=== PATIENT | female | born 1965 | race Caucasian/White ===

== ENCOUNTER 2016-06-25 00:40 | Day surgery (SDC) | payer OTHER ==
[2016-06-25] VITALS (12 sets, daily range): BP systolic 104–145; BP diastolic 50–76; PULSE 52–67; RESP 11–18; O2SAT 97–99
[~2016-06-25] VITALS: Ht 154.9 cm; Wt 48.1 kg
--- NOTE | 2016-06-25 06:30 | NUR ---
ADMISSION NOTE FEMALE PT ADMITTED FOR [facility]FE. DISCUSSED PLAN OF CARE WITH PT. SEE ADMIT AND FLOW SHEET
[2016-06-25] MEDS ORDERED: CeFAZolin 2 Gm/50 mL D5W IV Premix IV SCH (07:06)
[2016-06-25 07:07] LABS: BASOPHILS % (AUTO) 1.4 % (0-3); EOSINOPHILS % (AUTO) 2.6 % (0-5); MONOCYTES % (AUTO) 10.3 % (4-12); Mean Corpuscular Hemoglobin 27.1 pg (27.0-35.0); Mean Corpuscular Volume 84.5 fL (81-100); Platelet Count 222 bil/L (150-400)
[2016-06-25 07:35] LABS: INR 0.94 ratio
--- NOTE | 2016-06-25 08:00 | NUR ---
NOTE #[address] INSERTED WITHOUT DIFFICULTY
[2016-06-25] MEDS: 0.9% NaCl + KCl 20 mEq/L 1,000 ML IV SCH ×3 (08:02→20:30)
[2016-06-25] MEDS ORDERED: FLUO20CA25 PO (08:04)
[2016-06-25] MEDS ORDERED: Heparin 1,000 Unit/mL 10 mL Inj ONE (08:06)
[2016-06-25] MEDS ORDERED: 0.9% Sodium Chloride 1,000 ML ONE (08:06)
[2016-06-25] MEDS: Ondansetron 2 mg/mL 2 mL Inj IVPUSH SCH ×2 (08:18→11:34)
[2016-06-25] MEDS ORDERED: fentaNYL-PF 50 mCg/mL 2 mL Inj ONE (08:56)
[2016-06-25] MEDS ORDERED: Nitroglycerin 50,000 mcg/250 mL D5W Premix IV ONE (09:06)
[2016-06-25] MEDS ORDERED: Ketorolac 30 mg/mL 2 mL Inj ONE (09:17)
--- NOTE | 2016-06-25 10:00 | NUR ---
POST PROCEDURE NOTE RETURNED FROM SENIOR UX DEVELOPER. SENIOR NUCLEAR MEDICINE TECHNOLOGIST ATTACHED PER ORDER. SEE FLOW SHEET
[2016-06-25] MEDS ORDERED: HYDROmorphone 1 mg/mL Inj IVPUSH PRN ×2 (10:05)
[2016-06-25] MEDS: HYDROmorphone PCA 0.2 mg/mL 30 mL Inj - Standard IV PRN (10:38)
[2016-06-25] MEDS ORDERED: Ondansetron 2 mg/mL 2 mL Inj IVPUSH ONE (11:35)
--- NOTE | 2016-06-25 13:00 | NUR ---
TRANSFERED TO [facility]. REPORT GIVEN
--- NOTE | 2016-06-25 13:30 | NUR ---
ADMIT TO [facility] Patient arrived to rm 1014 on hospital bed and was able to scoot/pivot over to hospital bed in room. Alert and awake. Bolivar catheter in place. On RA, placed on CPOX. Dilaudid COUNSEL already in place and patient states it has been effective with managing cramping pain in lower abdomen. C/o mild nausea from the transfer. Gave ice water. IV fluids running. Continue to monitor
--- NOTE | 2016-06-25 13:45 | DRSVH ---
PROCEDURE: 1. Uterine fibroid embolization. 2. Conscious sedation 80 minutes. 3. Right groin closure device. INDICATIONS: Symptomatic uterine fibroids. COMPARISON: None. TECHNIQUE: Informed, written consent from the patient was obtained prior to the procedure. The risks (including, but not limited to risk of , need for hysterectomy, dilatation and curettage procedu re, infection, premature menopause, loss of orgasms, nontarget embolization, inadequate symptomatic r elief, arterial injury, hemorrhage, need for possible repeat procedure, pulmonary embolus) and benefi ts of uterine fibroid embolization procedure were discussed with the patient thoroughly. Patient was brought to the angiography suite, and conscious sedation was administered intravenously by skilled n ursing staff, while continuous cardiorespiratory monitoring was performed. Maximal sterile barrier te chnique, hand hygiene, skin preparation, and sterile ultrasound technique was followed. A mask, steri le gown, sterile gloves, a large sterile sheet, hand hygiene, and 2% chlorhexidine or iodine was util ized for skin antisepsis. The bilateral groins were prepped and draped sterilely, and the skin overl rush the right common femoral artery was infused with lidocaine. The right common femoral artery was accessed retrograde with a micropuncture set. A 5 Rwandan sheath was advanced, through which a 5 Frenc h C2 catheter was advanced, and was used to selectively inject the left internal iliac artery. A 3 Fr ench renegade hi flow catheter was advanced, was used to select the left uterine artery, and intra-ar terial nitroglycerin was administered. The renegade high flow catheter was injected for selective lef t uterine arteriography. The renegade high flow catheter was advanced into the distal portion of the left uterine artery, and embolization was performed with 700-900 micron embospheres, followed by 500- 700 micron embosphere is until stasis was achieved, as documented by hand injection digital subtracti on angiography. A Genaro's loop was formed with the C2 catheter, and the right internal iliac artery was selectively injected for right internal iliac arteriography. The renegade high flow catheter was used to select the right uterine artery, which was injected with intra-arterial nitroglycerin. Selec tive right uterine arteriography was performed. The renegade hi flow catheter was advanced into the d istal right uterine artery, and embolization was performed with 700-900 micron embospheres followed b y 500-700 micron embospheres until stasis was achieved, as documented by hand injection digital subtr action angiography. A 5 Rwandan pigtail catheter was advanced into the perirenal abdominal aorta and w as injected for AP pelvic arteriography. The right groin was then closed with a Starclose device. FLUOROSCOPY TIME: 12 minutes FINDINGS: The bilateral uterine arteries are tortuous and hypertrophied, and there is fibroid tumor blush and neovascularity seen on uterine artery injection. Following uterine artery embolization, sta sis is present within the bilateral uterine arteries. Aortography demonstrates no persistent flow in the uterine arteries, nor collateral vessels feeding the uterus. IMPRESSION: 1. Uterine artery embolization as described above, for symptomatic uterine fibroids. 2. The patient will be admitted for overnight observation, with anticipated discharge the following d ay. Dictated by: Farideh Cramer M.D. on 06/25/2016 at 13:42 Approved by: Farideh Cramer M.D. on 06/25/2016 at 13:44
[2016-06-25] MEDS ORDERED: oxyCODONE-Acetamin 5-325 mg Tablet PO PRN (15:35)
[2016-06-25] MEDS ORDERED: Ondansetron 2 mg/mL 2 mL Inj IVPUSH PRN (15:35)
[2016-06-25] MEDS: 0.9% Sodium Chloride 1,000 ML IV SCH ×2 (16:51→19:16)
[2016-06-26] MEDS: 0.9% NaCl + KCl 20 mEq/L 1,000 ML IV SCH ×2 (03:10→08:32)
[2016-06-26] MEDS: 0.9% Sodium Chloride 1,000 ML IV SCH ×2 (03:13→08:32)
[2016-06-26] MEDS: HYDROmorphone PCA 0.2 mg/mL 30 mL Inj - Standard IV PRN (03:29)
[2016-06-26 04:36] VITALS: BP 113/61; PULSE 54; RESP 15; O2SAT 94
--- NOTE | 2016-06-26 05:01 | NUR ---
O2 Patient having difficulty keeping above 90% put on one liter of oxygen. A&O, extremities warm, and respirations 15+. LETTERPRESS SETTER to be discontinued this am. Pt aware and prepared for transition.
[2016-06-26 09:04] VITALS: BP 104/49; PULSE 62; RESP 16; O2SAT 96
--- NOTE | 2016-06-26 12:19 | NUR ---
DISCHARGE Patient's pain was brought down to tolerable level with administration of dilaudid PO. Patient was able to rest and stated she felt ready to go home. Reviewed discharge paperwork with patient including medications and follow up appointments. Faxed over non narcotic Rx to [facility] pharmacy in [place] for patient ahead of time. All hard copy Rx were sent with patient in discharge packet. Dressing to R groin stable with minimal drainage. Removed both saline lock IV's, one from right arm and one from left arm, gauze dressing placed. Patient got dressed independently. son arrived to drive patient home. Escorted outside to personal vehicle in wheelchair. Left with all patient belongings.
--- NOTE | 2016-06-30 02:18 | DIS ---
[address] [address] DISCHARGE SUMMARY PATIENT: TAMMIE ANNE : 1965 MR#: [id number] ADMIT: 06/25/2016 JOB ID: [id number] DIS: 06/26/2016 HOSPITAL COURSE: The patient is a 50-year-old female who underwent uterine fibroid embolization for symptomatic uterine fibroids on June 25, 2016. The procedure was uneventful and proceeded according to plan. The patient was subsequently admitted for overnight observation. A Dilaudid EDI ARCHITECT pump was provided for pain relief. Nausea was controlled with Zofran. Intravenous fluids were administered. Sequential compression devices were applied to the calves. The patient remained stable during the course of the hospital stay. On the morning of discharge, June 26, 2016, the patient's pain control was adequately controlled with oral Dilaudid, Percocet, and ibuprofen. DISCHARGE MEDICATIONS: 1. Ibuprofen 800 mg p.o. q.6 h. x4 days, then q.6 h. p.r.n. 2. Percocet 1-2 tabs p.o. q.4 h. p.r.n. 3. Dilaudid 2 mg p.o. q.4 h. p.r.n. 4. Zofran orally disintegrating tablets 8 mg p.o. q.6 h. p.r.n. FOLLOWUP: The patient will follow up with me in one week in the [facility]. Additionally, I will call the patient on the day following discharge at home.
== END 2016-06-26 11:55 | disposition home or self-care (01) ==
LOC: SOUO 00:40 → OSC 14:24 → SOUO 06-26 11:55
PROVIDERS: ATTEND Radiology Diagnostic Radiology
DX: D25.9 Leiomyoma of uterus, unspecified (principal)
CPT/HCPCS: 36415; 37243; 80048; 84702; 84703; 85025; 85610; 85730; 94760; 96374; 96375; 96376; 99152; 99153; C1760; C1769; C1887; J1644; J1885; J2250; J2405; J3010; J7030; Q9967